=== PATIENT | male | born 2005 | race African-American/Black ===

== ENCOUNTER → 2023-09-29 | Outpatient (CLI) | payer OTHER | END | disposition home or self-care (01) | LOC: RAH 11:48 → EEVIPCON 11:48 | PROVIDERS: ATTEND Family Medicine | DX: R91.8 Other nonspecific abnormal finding of lung field (principal); Z20.2 Contact with and (suspected) exposure to infections with a predominantly sexual mode of transmission; A63.0 Anogenital (venereal) warts; M79.89 Other specified soft tissue disorders | CPT/HCPCS: 71250 ==